=== PATIENT | female | born 1980 | race Caucasian/White ===

== ENCOUNTER 2019-12-10 07:30 | Observation (INO) ==
[2019-12-12] MEDS ORDERED: D5 1/2 NS 1000 ML 1,000 ML IV SCH (06:24)
[2019-12-12] MEDS ORDERED: ANCEF VIAL 1 GRAM IVP ONE (06:24)
[2019-12-12] MEDS ORDERED: ANCEF 1 GRAM IV PREMIX* 2 G/100 ML BAG IV ONE (06:26)
[2019-12-12 07:06] VITALS: BMI 45.3
[2019-12-12] MEDS ORDERED: VASOSTRICT INJ 20 UNITS VIAL ONE (07:08)
[2019-12-12] MEDS ORDERED: NS 1000 ML 1,000 ML ONE (07:09)
[2019-12-12] MEDS ORDERED: DECADRON INJ ONE ×2 (07:10→13:21)
[2019-12-12] MEDS ORDERED: DILAUDID INJ ONE (07:10)
[2019-12-12] MEDS ORDERED: XYLOCAINE 1 % (PLAIN) ONE ×2 (07:10→13:21)
[2019-12-12] MEDS ORDERED: ZOFRAN INJ 4 MG VIAL IVP PRN (09:53)
[2019-12-12] MEDS ORDERED: DILAUDID INJ IVP PRN (09:53)
[2019-12-12] MEDS ORDERED: REGLAN INJ 10 MG VIAL IVP PRN (09:53)
[2019-12-12] MEDS ORDERED: BENADRYL INJ 50 MG VIAL IVP PRN (09:53)
[2019-12-12] MEDS ORDERED: PHENERGAN INJ 25 MG IM PRN (09:53)
[2019-12-12] MEDS ORDERED: PERCOCET TAB 5/325 MG PO PRN (09:59)
[2019-12-12] MEDS ORDERED: TORADOL 30 MG VIAL IVP PRN (09:59)
[2019-12-12] MEDS: ZOFRAN INJ 4 MG VIAL IVP PRN ×2 (10:30→17:27)
[2019-12-12] MEDS ORDERED: ZOFRAN INJ 4 MG VIAL ONE ×2 (10:32→13:21)
[2019-12-12] MEDS: D5 1/2 NS 1000 ML 1,000 ML IV SCH ×3 (12:44→21:58)
[2019-12-12] MEDS ORDERED: NORCURON INJ 10 MG VIAL ONE (13:21)
[2019-12-12] MEDS ORDERED: NEOSTIGMINE INJ ONE (13:21)
[2019-12-12] MEDS ORDERED: TORADOL 30 MG VIAL ONE (13:21)
[2019-12-12] MEDS ORDERED: MARCAINE SPINAL ONE (13:21)
[2019-12-12] MEDS ORDERED: ROBINUL ONE (13:21)
[2019-12-12] MEDS ORDERED: DIPRIVAN VIAL ONE (13:21)
[2019-12-12] MEDS ORDERED: QUELICIN (OR ANECTINE) ONE (13:21)
[2019-12-12] MEDS ORDERED: VERSED ONE (13:21)
[2019-12-12] MEDS ORDERED: ULTANE GAS IN ONE (13:21)
[2019-12-12] MEDS: BENADRYL INJ 50 MG VIAL IVP PRN (17:26)
[2019-12-12] MEDS: COLACE CAP 100 MG PO SCH (21:36)
[2019-12-13] MEDS: BENADRYL INJ 50 MG VIAL IVP PRN (00:53)
[2019-12-13] MEDS: D5 1/2 NS 1000 ML 1,000 ML IV SCH ×2 (02:00→05:51)
[2019-12-13 05:41] LABS: BASOPHILS # (AUTO) 0.1 X10^3/uL (0.0-0.1); BASOPHILS % (AUTO) 0.5 % (0.2-1.0); HEMATOCRIT 40.9 % (36.0-47.0); HEMOGLOBIN 13.7 g/dL (12.0-16.0); LYMPHOCYTES # (AUTO) 1.6 X10^3/uL (1.3-2.9); LYMPHOCYTES % (AUTO) 11.2 % (21.0-51.0); MEAN CORPUSCULAR HEMOGLOBIN 29.1 pg (27.0-34.0); MEAN CORPUSCULAR HGB CONC 33.5 g/dL (33.0-35.0); MEAN PLATELET VOLUME 9.3 fL (7.4-11.0); MONOCYTES # (AUTO) 0.7 x10^3/uL (0.3-0.8); MONOCYTES % (AUTO) 5.1 % (0.0-13.0); NEUTROPHILS # (AUTO) 11.7 x10^3/uL (2.2-4.8); NEUTROPHILS % (AUTO) 83.2 % (42.0-75.0); PLATELET COUNT 345 X10^3/uL (150.0-450.0); RED BLOOD COUNT 4.71 X10^6/uL (3.5-5.4); RED CELL DISTRIBUTION WIDTH 12.9 % (11.6-16.5)
[2019-12-13 05:49] LABS: BLOOD UREA NITROGEN 9 mg/dL (7-18); CALCIUM 8.9 mg/dL (8.5-10.1); CARBON DIOXIDE 28.8 mmol/L (21-32); CHLORIDE 99 mmol/L (98-107); CREATININE 0.83 mg/dL (0.55-1.02); SODIUM 137 mmol/L (136-145); eGFR NON BLACK RACES > 60 (>60)
[2019-12-13 08:04] VITALS: BP 106/56
[2019-12-13] MEDS: COLACE CAP 100 MG PO SCH (08:59)
== END 2019-12-13 10:41 | disposition home or self-care (01) ==
LOC: MED/SURG → EDSTATUS 12-12 07:30 → MED/SURG 12-12 12:00
PROVIDERS: ADMIT Specialist; ATTEND Specialist
DX: R10.2 Pelvic and perineal pain; N92.5 Other specified irregular menstruation; D25.2 Subserosal leiomyoma of uterus; N94.4 Primary dysmenorrhea; Z11.59 Encounter for screening for other viral diseases; N83.292 Other ovarian cyst, left side
CPT/HCPCS: 36415; 80048; 85025; 96360; 96361; 96374; A4222; G0378; J0330; J0690; J1100; J1170; J1200; J1885; J2250; J2405; J2704; J2710; J3490; J7030; S5010